=== PATIENT | female | born 1950 | race Caucasian/White ===

== ENCOUNTER 2022-06-23 07:53 | Emergency (ER) | payer MEDICARE, SELFPAY ==
[2022-06-23 08:10] VITALS: BP 195/97; PULSE 69; RESP 18; TEMP 36.3; O2SAT 96; BMI 34.7
[2022-06-23 08:14] VITALS: BP 162/90; PULSE 68; RESP 18; O2SAT 95
--- NOTE | 2022-06-23 08:22 | CRLHL7_ITS ---
For Patients: As a result of the Cures Act, medical imaging exams and procedure reports are released immediately into your electronic medical record. You may view this report before your referring provider. If you have questions, please contact your health care provider. INDICATION: Abdominal pain. COMPARISON: None. TECHNIQUE: CT abdomen and pelvis with intravenous contrast; coronal and sagittal reformats. FINDINGS: No evidence of pleural effusion. Normal size cardiac silhouette without any pericardial effusion. No focal hepatic or splenic pathology. No pancreatic pathology. Gallbladder is unremarkable. No adrenal pathology. No kidney stones or obstructive uropathy. Tiny cortical cyst left kidney. No retroperitoneal lymphadenopathy. No evidence of abdominal or pelvic ascites. No pneumoperitoneum or intestinal obstruction. Normal appendix. Status post hysterectomy. Diverticulosis sigmoid colon without any CT evidence of diverticulitis or abscess. Nonspecific nonobstructive focal dilatation of the jejunum in the left mid abdomen; rule out nonspecific enteritis. Splenic vein, superior mesenteric vein and the portal vein are unremarkable. IMPRESSION: 1. Nonspecific focal nonobstructive dilatation of the proximal small bowel in the left mid abdomen; rule out focal nonspecific enteritis. 2. Status post hysterectomy. 3. No kidney stones or obstructive uropathy. 4. Normal appendix. Please note that all CT scans at this facility use dose modulation, iterative reconstruction, and/or weight-based dosing when appropriate to reduce radiation dose to as low as reasonably achievable. Dictated by Naya Bagley MD @ 06/23/2022 10:02:59 AM (Electronically Signed)
--- NOTE | 2022-06-23 08:24 | ED_ITS ---
HPI - Abdominal Pain General Chief Complaint: Abdominal Pain Stated Complaint: Left sided abdominal pain Time Seen by Provider: 06/23/22 07:57 History of Present Illness HPI narrative: This 72-year-old female comes in reporting abdominal pain that began about a month ago. She states that it was more on the right side initially and seem to come and go for a couple weeks. Now it is more constant and diffuse throughout her abdomen. She states that the pain is relieved when laying down and worse with being upright. She denies having any nausea, vomiting, diarrhea, respiratory symptoms, decreased appetite, or dysuria symptoms. She states that she always has had some constipation and does report of a history of twinges of diverticulitis. She did see her primary physician a couple weeks ago and had complete blood count in urinalysis done which showed normal results. Related Data Home Medications Medication Instructions Recorded Confirmed acetaminophen 325 mg tablet 325 mg PO Q6H PRN 06/23/22 06/23/22 (Tylenol) alprazolam 0.5 mg tablet (Xanax) 0.5 mg PO DAILY 06/23/22 06/23/22 multivitamin (Daily Multi-Vitamin 1 tab PO DAILY 06/23/22 06/23/22 tablet) naproxen sodium 220 mg capsule 220 mg PO BID PRN 06/23/22 06/23/22 (Aleve) omeprazole 20 mg capsule,delayed 20 mg PO DAILY 06/23/22 06/23/22 release Previous Rx's Medication Instructions Recorded methylprednisolone 4 mg tablets in 4 mg PO DAILY #21 ea 06/23/22 a dose pack (Medrol (Jim)) Allergies Allergy/AdvReac Type Severity Reaction Status Date / Time atorvastatin AdvReac myalgia Verified 06/23/22 09:34 pravastatin AdvReac myalgia Verified 06/23/22 09:34 Review of Systems Status of ROS Reports: 10 or more systems reviewed and unremarkable except as noted in History and below Narrative Constitutional: No fevers, no weight gain or loss. Eyes: No discharge. No vision changes. HENT: No congestion, no sore throat, no ear pain. Cardiovascular: No chest pain, no palpitations. Respiratory: No shortness of breath, no wheezes, no cough. Gastrointestinal: No vomiting, no diarrhea. Abdominal pain as described above. Genitourinary: No dysuria, no hematuria. Musculoskeletal: Normal range of motion. Skin: No rashes, no pruritis. Neurological: No dizziness, weakness, sensory change, speech change. Endo/Heme/Allergies: No bruising or bleeding. No polydipsia. Pysch: no suicidality, no anxiety, no insomnia. All other systems reviewed and are negative. [facility] Medical History (Updated 06/23/22 @ 10:29 by Neal Landry MD) GERD (gastroesophageal reflux disease) Hyperlipidemia Surgical History (Updated 06/23/22 @ 08:45 by Danna Mcclelland RN) H/O: hysterectomy History of eyelid surgery Hx of breast reduction, elective Social History Smoking Status: Never smoker How often do you have a drink containing alcohol: 2-3 times a week AUDIT-C Alcohol total score: 3 Non-prescribed substance use: denies use Exam Narrative: Exam Narrative: Constitutional: Well-developed, well-nourished, no acute distress. HEENT: Normocephalic, atraumatic. Neck: Normal range of motion. Nontender. Supple. Heart: Regular. No murmurs. Normal rate. Intact distal pulses. Lungs: Clear to auscultation. No chest discomfort. No wheezes, rhonchi, or rales. Abdomen: Normal bowel sounds. Mild tenderness diffuse throughout the abdomen. She has some mild rebound tenderness. Genitalia: Deferred. Back: No midline tenderness. Normal range of motion. Extremities: Normal range of motion. No injury. Skin: Intact. No rash. Warm. No erythema or pallor. Neurologic: No altered sensation. No weakness. Alert and oriented. Psychiatric: No suicidality. No anxiety or depression. No insomnia. Nursing notes and vitals signs are reviewed. Const: Vital Signs, click to edit/add: Vital Signs - 24 hr 06/23/22 08:10 06/23/22 08:14 06/23/22 10:00 Temperature 97.4 F L Pulse Rate [Right Pulse Oximeter] 69 68 69 Respiratory Rate 18 18 18 Blood Pressure [Ri ght Upper Arm] 195/97 H 162/90 H 183/86 H Pulse Oximetry 96 95 96 Oxygen Delivery Me thod Room Air Room Air Room Air Course Vital Signs Vital signs: Initial Vital Signs Temperature 97.4 F L 06/23/22 08:10 Temperature Source Temporal Artery Scan 06/23/22 08:10 Pulse Rate 69 06/23/22 08:10 Respiratory Rate 18 06/23/22 08:10 Blood Pressure 195/97 H 06/23/22 08:10 Blood Pressure Mean 129 06/23/22 08:10 Blood Pressure Position Sitting 06/23/22 08:10 Pulse Oximetry 96 06/23/22 08:10 Oxygen Delivery Method 06/23/22 08:10 Vital Signs Temperature 97.4 F L 06/23/22 08:10 Pulse Rate 69 06/23/22 08:10 Respiratory Rate 18 06/23/22 08:10 Blood Pressure 195/97 H 06/23/22 08:10 Pulse Oximetry 96 06/23/22 08:10 Oxygen Delivery Method 06/23/22 08:10 Temperature 97.4 F L 06/23/22 08:10 Pulse Rate 69 06/23/22 10:00 Respiratory Rate 18 06/23/22 10:00 Blood Pressure 183/86 H 06/23/22 10:00 Pulse Oximetry 96 06/23/22 10:00 Oxygen Delivery Method 06/23/22 10:00 MDM - Abdominal Pain MDM Narrative Medical decision making narrative: This patient comes in with abdominal symptoms as described above. These have been going on for upwards of a month and her pain is somewhat reproducible with position and certain movements. A CT scan of the abdomen and pelvis was done with IV contrast and shows no acute findings except for some nonspecific enteritis in the left abdomen. Lab results returned with normal findings. It seems that her symptoms are more likely musculoskeletal or nerve mediated. In any event the lab and imaging results today are reassuring. The patient is taking omeprazole as she states that she has some upset stomach at times. I advised her to increase this medicine from 20-40 mg daily for a week or so. She also received a Medrol Dosepak. I advised her regarding signs or symptoms that indicate a need for return and re-evaluation. Lab Data Labs: Lab Results 06/23/22 06/23/22 06/23/22 Range/Units 08:30 08:30 08:30 WBC 8.55 (4.50-11.00) K/uL RBC 5.15 (4.00-5.20) m/uL Hgb 15.4 (12.0-16.0) gm/dL Hct 46.8 (33.0-51.0) % MCV 91 (80-100) fL MCH 30 (26-34) pg MCHC 33 (32-36) gm/dL RDW Coeff of Liz 13.1 (11.5-15.5) % Plt Count 352 (140-440) K/uL Neut % (Auto) 65.5 (42.0-72.0) % Lymph % (Auto) 24.1 (20-44) % [place] % (Auto) 8.5 (0.0-11.0) % Eos % (Auto) 1.2 (0.0-7.0) % Baso % (Auto) 0.5 (0.0-3.0) % Neut # (Auto) 5.60 (1.7-7.0) K/uL Lymph # (Auto) 2.06 (0.90-2.90) K/uL [place] # (Auto) 0.70 (0.00-0.90) K/UL Eos # (Auto) 0.10 (0.00-0.50) K/uL Baso # (Auto) 0.04 (0.00-0.30) K/uL Abs Immat Gran (auto) 0.02 (0.00-0.30) K/uL Sodium 140 (135-149) mmol/L Potassium 4.1 (3.6-5.1) mmol/L Chloride 102 (96-114) mmol/L Carbon Dioxide 30 (20-32) mmol/L BUN 9 (7-30) mg/dL Creatinine 0.6 (0.5-1.5) mg/dL Estimated Creat Clear 46.90 Estimated GFR 95 ml/min Glucose 131 H (60-115) mg/dL Calcium 9.3 (8.4-10.6) mg/dL Total Bilirubin 0.5 (0.1-1.5) mg/dL Direct Bilirubin 0.2 (0.0-0.5) mg/dL AST 41 H (12-35) U/L ALT 31 (4-35) U/L Alkaline Phosphatase 79 (40-150) U/L Total Protein 8.2 (6.0-8.3) g/dL Albumin 4.6 (3.3-5.0) g/dL Lipase 79 (23-300) U/L Imaging Data CT scan - abdomen: Radiologist's impression: 1. Nonspecific focal nonobstructive dilatation of the proximal small bowel in the left mid abdomen; rule out focal nonspecific enteritis. 2. Status post hysterectomy. 3. No kidney stones or obstructive uropathy. 4. Normal appendix. Discharge Plan Discharge Clinical Impression: Abdominal pain Condition: Stable Instructions: Abdominal Pain (ED) Additional Instructions: Take medications as needed and indicated. Follow up with MD or return if worsening symptoms occur. Prescriptions: New methylprednisolone [Medrol (Jim)] 4 mg tablets,dose pack 4 mg PO DAILY Qty: 21 0RF No Action naproxen sodium [Aleve] 220 mg capsule 220 mg PO BID PRN acetaminophen [Tylenol] 325 mg tablet 325 mg PO Q6H PRN alprazolam [Xanax] 0.5 mg tablet 0.5 mg PO DAILY multivitamin [Daily Multi-Vitamin] Tablet 1 tab PO DAILY omeprazole 20 mg capsule,delayed release(DR/EC) 20 mg PO DAILY Follow Up/Referrals: Jaimee Swanson, [employer], [employer] [Primary Care Provider] - Stand Alone Forms: [facility] Info Instructions
[2022-06-23 09:14] LABS: Albumin* 4.6 g/dL (3.3-5.0); Chloride* 102 mmol/L (96-114); Sodium* 140 mmol/L (135-149)
[2022-06-23 09:15] LABS: Potassium* 4.1 mmol/L (3.6-5.1)
[2022-06-23 09:17] LABS: Alanine Aminotransferase* 31 U/L (4-35); Alkaline Phosphatase* 79 U/L (40-150); Aspartate Amino Transferase* 41 U/L (12-35); Bilirubin Direct* 0.2 mg/dL (0.0-0.5); Bilirubin Total* 0.5 mg/dL (0.1-1.5); Blood Urea Nitrogen* 9 mg/dL (7-30); Calcium* 9.3 mg/dL (8.4-10.6); Carbon Dioxide* 30 mmol/L (20-32); Creatinine* 0.6 mg/dL (0.5-1.5); Estimated Glomerular Filt Rate 95 ml/min; Glucose* 131 mg/dL (60-115); Total Protein* 8.2 g/dL (6.0-8.3)
[2022-06-23 09:18] LABS: Lipase* 79 U/L (23-300)
[2022-06-23 09:29] LABS: Basophils Absolute Auto 0.04 K/uL (0.00-0.30); Basophils Percent Auto 0.5 % (0.0-3.0); Eosinophils Percent Auto 1.2 % (0.0-7.0); Hematocrit 46.8 % (33.0-51.0); Hemoglobin* 15.4 gm/dL (12.0-16.0); Immature Granulocytes Abs Auto 0.02 K/uL (0.00-0.30); Lymphocytes Absolute Auto 2.06 K/uL (0.90-2.90); Lymphocytes Percent Auto 24.1 % (20-44); Mean Corpuscular HGB Conc 33 gm/dL (32-36); Mean Corpuscular Hemoglobin 30 pg (26-34); Mean Corpuscular Volume 91 fL (80-100); Monocytes Percent Auto 8.5 % (0.0-11.0); Neutrophils Percent Auto 65.5 % (42.0-72.0); Platelet Count* 352 K/uL (140-440); RDW Coefficient of Variation % 13.1 % (11.5-15.5); Red Blood Count 5.15 m/uL (4.00-5.20); White Blood Count* 8.55 K/uL (4.50-11.00)
[2022-06-23 09:32] LABS: Slide Review Reflex No
[2022-06-23 10:00] VITALS: BP 183/86; PULSE 69; RESP 18; O2SAT 96
== END 2022-06-23 10:47 | disposition home or self-care (01) ==
PROVIDERS: Emergency Provider Emergency Medicine Emergency Medical Services; PCP Nurse Practitioner Family
DX: R10.84 Generalized abdominal pain (principal)
CPT/HCPCS: 36415; 74177; 80048; 80076; 83690; 85025; 99284; Q9967

== ENCOUNTER 2023-08-07 16:59 | Emergency (ER) | payer MEDICARE, SELFPAY ==
[2023-08-07] VITALS (26 sets, daily range): BP systolic 90–182; BP diastolic 56–96; PULSE 44–72; RESP 20; TEMP 35.7; O2SAT 93–98; BMI 33.9
--- NOTE | 2023-08-07 17:16 | CRLHL7_ITS ---
For Patients: As a result of the Cures Act, medical imaging exams and procedure reports are released immediately into your electronic medical record. You may view this report before your referring provider. If you have questions, please contact your health care provider. INDICATION: Cough, chest pain. TECHNIQUE: Chest radiograph 2 views COMPARISON: None FINDINGS: Indeterminate nodules in the right hemithorax, 2 of which appear to project in the anterior right chest wall on lateral view. Superior nodule appears to project in the right upper lung zone. Left hemithorax clear. No airspace consolidation or pleural effusions. Heart size and mediastinal contours within normal limits. Bones and soft tissues unremarkable. No thoracic spine compression fracture. IMPRESSION: 1. Indeterminate nodule suspected in the right upper lobe, estimated size 2.3 cm. Two additional nodules may project in the anterior right chest wall. Recommend chest CT with IV contrast for further characterization. No focal pneumonia. Dictated by Tc Brennan MD @ 08/07/2023 6:13:23 PM Dictated by: Tc Brennan MD @ 08/07/2023 18:13:28 (Electronically Signed)
[2023-08-07] MEDS: ASPIRIN 81 MG TAB.CHEW 324 MG PO (17:18)
[2023-08-07] MEDS: NITROGLYCERIN 0.4 MG TAB.SUBL SUBLINGUAL (17:19)
--- NOTE | 2023-08-07 17:31 | ED.CHESTPAIN ---
HPI - Chest Pain General Date Seen: 08/07/23 Chief Complaint: Chest Pain Stated Complaint: Shoulder, jaw, chest aches Time Seen by Provider: 08/07/23 17:01 Source: patient Mode of arrival: ambulatory Limitations: no limitations History of Present Illness HPI narrative: Patient is a 73-year-old female with history of hypertension, hyperlipidemia presented emergency department for chest pain. She states the chest pain started yesterday and has been intermittent in nature. States now is the worst it has been. She states it feels like her previous gastric reflux blood worse. Describes as a burning sensation. Symptoms radiate from her chest to her bilateral shoulders and right jaw. Denies symptoms like this before. She has no family history of heart disease and has no history of smoking. Denies fevers, chills, lightheadedness, dizziness, abdominal pain, diarrhea, constipation, fevers, chills, headache, vision changes, weakness, numbness. She is not having any shortness of breath and symptoms are not worsened on deep breaths. She has notice symptoms seem to get better when she lays flat and are mildly worse when she is up and moving around. Related Data Home Medications Medication Instructions Recorded Confirmed acetaminophen 325 mg tablet 325 mg PO Q6H PRN 06/23/22 06/23/22 (Tylenol) multivitamin (Daily Multi-Vitamin 1 tab PO DAILY 06/23/22 06/23/22 tablet) naproxen sodium 220 mg capsule 220 mg PO BID PRN 06/23/22 06/23/22 (Aleve) omeprazole 20 mg capsule,delayed 20 mg PO DAILY 06/23/22 08/07/23 release lisinopril 20 mg tablet 20 mg PO DAILY 08/07/23 08/07/23 omega 7-pdd-aau-fish oil 1,000 mg 1 cap PO DAILY 08/07/23 08/07/23 (120 mg-180 mg) capsule (Fish Oil) Allergies Allergy/AdvReac Type Severity Reaction Status Date / Time atorvastatin AdvReac myalgia Verified 08/07/23 17:10 pravastatin AdvReac myalgia Verified 08/07/23 17:10 Review of Systems Status of ROS Reports: 10 or more systems reviewed and unremarkable except as noted in History and below PFSH PFS Medical History (Updated 08/07/23 @ 21:17 by Pawan Ma, DO) Hyperlipidemia ?E78.5 - Hyperlipidemia, unspecified (ICD-10) GERD (gastroesophageal reflux disease) ?K21.9 - Gastro-esophageal reflux disease without esophagitis (ICD-10) Surgical History (Updated 06/23/22 @ 08:45 by Danna Mcclelland RN) History of eyelid surgery ?Z98.890 - Other specified postprocedural states (ICD-10) Hx of breast reduction, elective ?Z98.890 - Other specified postprocedural states (ICD-10) H/O: hysterectomy ?Z90.710 - Acquired absence of both cervix and uterus (ICD-10) Social History Smoking Status: Never smoker How often do you have a drink containing alcohol: 2-3 times a week How many standard drinks containing alcohol do you have on a typical day: 1 or 2 AUDIT-C Alcohol total score: 3 Non-prescribed substance use: denies use Exam Narrative Exam Narrative: Const: Well-nourished, Well-developed, in mild distress Eyes: PERRL, no conjunctival injection, and symmetrical lids HENT: Atraumatic external nose and ears. Moist mucous membranes. Neck: Symmetric, trachea midline, No thyromegaly. CVS: RRR, No murmurs or gallops. Peripheral pulses 2+ and equal in all extremities RESP: Unlabored respiratory effort. Clear to auscultation bilaterally. GI: Nontender/Nondistended, No rebound or guarding. MSK:Extremities w/o deformity, Normal Active ROM Skin: Warm, Dry. No rashes or lesions. Neuro: Normal Muscle tone, No focal neurological deficits. Psych: Awake, Alert, & Oriented x3. Appropriate mood and affect. Const Vital Signs, click to edit/add: Vital Signs - 24 hr 08/07/23 17:04 08/07/23 17:11 08/07/23 17:37 Temperature 96.3 F L Pulse Rate Pulse Rate [Right Pulse Oximeter] 72 Respiratory Rate 20 Blood Pressure [Left Upper Arm] 182/82 H 154/76 H 155/70 H Pulse Oximetry 98 Oxygen Delivery Method Room Air 08/07/23 18:00 08/07/23 18:30 08/07/23 18:36 Temperature Pulse Rate 49 L Pulse Rate [Right Pulse Oximeter] Respiratory Rate Blood Pressure [Left Upper Arm] 142/68 H 144/65 H Pulse Oximetry 96 Oxygen Delivery Method Room Air Course Vital Signs Vital signs: Initial Vital Signs Temperature 96.3 F L 08/07/23 17:04 Temperature Source Temporal Artery Scan 08/07/23 17:04 Pulse Rate 72 08/07/23 17:04 Pulse Rhythm Regular 08/07/23 17:04 Respiratory Rate 20 08/07/23 17:04 Blood Pressure 182/82 H 08/07/23 17:04 Blood Pressure Mean 115 H 08/07/23 17:04 Blood Pressure Position Semi-Fowlers 08/07/23 17:04 Pulse Oximetry 98 08/07/23 17:04 Oxygen Delivery Method Room Air 08/07/23 17:04 Vital Signs Temperature 96.3 F L 08/07/23 17:04 Pulse Rate 72 08/07/23 17:04 Respiratory Rate 20 08/07/23 17:04 Blood Pressure 182/82 H 08/07/23 17:04 Pulse Oximetry 98 08/07/23 17:04 Oxygen Delivery Method Room Air 08/07/23 17:04 Temperature 96.3 F L 08/07/23 17:04 Pulse Rate 49 L 08/07/23 18:36 Respiratory Rate 20 08/07/23 17:04 Blood Pressure 144/65 H 08/07/23 18:30 Pulse Oximetry 96 08/07/23 18:36 Oxygen Delivery Method Room Air 08/07/23 18:36 MDM - Chest Pain MDM Narrative Medical decision making narrative: Patient is a 73-year-old female presenting to emergency department for chest pain. Symptoms have been going on since yesterday. She describes as a burning sensation similar to previous GERD but this time it radiates to her shoulders and her neck. The radiation has since resolved and is back to burning sensation in her chest. She does note the symptoms are better when she lays down flat and mildly worse when she gets up and walks around. We will do an ACS workup on her. We have unlikely to be pulmonary embolism at this time due to no shortness of breath or dyspnea and no signs of a DVT. Patient's lab work returned showing no concerning abnormalities. Troponin was with initially within normal limits. Urinalysis shows no signs of UTI. COVID a and flu showed no concerning abnormalities. Chest x-ray shows no concerning abnormalities. At this time with her stable vital signs and dissection pneumothorax unlikely considering the imaging. There are nodules but she should follow up outpatient for. No signs of pneumonia. She did get aspirin and nitro when she 1st came in. Symptoms have resolved but she states that resolved quite a while after she got the nitro and underlying bleed if it is related to that at this time. His other is doing well. Her repeat point of care troponin was 0.2 which is notably elevated compared to previously. She does state she still feels a slight discomfort in her chest. We will consult [facility] for possible transfer. Heparin was started. Patient was given another dose of nitro and her symptoms improved again. I spoke to Dr. Klein of [facility] and he accepts her for transfer. Recommends nitro drip if symptoms return again. Patient is agreeable to this plan. Lab Data Labs: Lab Results 08/07/23 08/07/23 08/07/23 Range/Units 17:16 17:30 17:53 WBC 8.05 (4.50-11.00) K/uL RBC 4.45 (4.00-5.20) m/uL Hgb 13.5 (12.0-16.0) gm/dL Hct 40.6 (33.0-51.0) % MCV 91 (80-100) fL MCH 30 (26-34) pg MCHC 33 (32-36) gm/dL RDW Coeff of Liz 13.0 (11.5-15.5) % Plt Count 279 (140-440) K/uL Neut % (Auto) 52.8 (42.0-72.0) % Lymph % (Auto) 36.3 (20-44) % [place] % (Auto) 8.7 (0.0-11.0) % Eos % (Auto) 1.6 (0.0-7.0) % Baso % (Auto) 0.4 (0.0-3.0) % Neut # (Auto) 4.25 (1.7-7.0) K/uL Lymph # (Auto) 2.92 H (0.90-2.90) K/uL [place] # (Auto) 0.70 (0.00-0.90) K/UL Eos # (Auto) 0.13 (0.00-0.50) K/uL Baso # (Auto) 0.03 (0.00-0.30) K/uL Abs Immat Gran (auto) 0.02 (0.00-0.30) K/uL Imm/Tot Granulo (auto) 0.2 % Sodium 139 (135-149) mmol/L Potassium 3.7 (3.6-5.1) mmol/L Chloride 104 (96-114) mmol/L Carbon Dioxide 26 (20-32) mmol/L Anion Gap 9 (7-15) mEq/L BUN 11 (7-30) mg/dL Creatinine 0.6 (0.5-1.5) mg/dL Estimated Creat Clear 46.20 Estimated GFR 94 ml/min Glucose 124 H (60-115) mg/dL Calcium 8.5 (8.4-10.6) mg/dL Magnesium 1.9 (1.5-2.6) mg/dL Troponin I < 0.01 L (0.01-0.04) ng/mL Urine Color (Yellow) Urine Appearance (Clear) Urine pH (5.0-8.5) Ur Specific [place] (1.000-1.030) Urine Protein (Negative) Urine Glucose (UA) (Negative) Urine Ketones (Negative) Urine Blood (Negative) Urine Nitrite (Negative) Urine Bilirubin (Negative) Urine Urobilinogen (0.2-1.0) Ur Leukocyte Esterase (Negative) Urine RBC (0-2) Urine WBC (0-5) Ur Squamous Epith Cells (None-Few) Urine Bacteria (None) Urine Mucus (None) SARS-CoV-2 (PCR) Negative SARS-CoV-2 (Negative) Influenza Type A (PCR) Negative PCR FLU A (Negative) Influenza Type B (PCR) Negative PCR FLU B (Negative) POC Troponin I 0.00 L (0.01-0.04) ng/ml 08/07/23 08/07/23 Range/Units 19:25 20:30 WBC (4.50-11.00) K/uL RBC (4.00-5.20) m/uL Hgb (12.0-16.0) gm/dL Hct (33.0-51.0) % MCV (80-100) fL MCH (26-34) pg MCHC (32-36) gm/dL RDW Coeff of Liz (11.5-15.5) % Plt Count (140-440) K/uL Neut % (Auto) (42.0-72.0) % Lymph % (Auto) (20-44) % [place] % (Auto) (0.0-11.0) % Eos % (Auto) (0.0-7.0) % Baso % (Auto) (0.0-3.0) % Neut # (Auto) (1.7-7.0) K/uL Lymph # (Auto) (0.90-2.90) K/uL [place] # (Auto) (0.00-0.90) K/UL Eos # (Auto) (0.00-0.50) K/uL Baso # (Auto) (0.00-0.30) K/uL Abs Immat Gran (auto) (0.00-0.30) K/uL Imm/Tot Granulo (auto) % Sodium (135-149) mmol/L Potassium (3.6-5.1) mmol/L Chloride (96-114) mmol/L Carbon Dioxide (20-32) mmol/L Anion Gap (7-15) mEq/L BUN (7-30) mg/dL Creatinine (0.5-1.5) mg/dL Estimated Creat Clear Estimated GFR ml/min Glucose (60-115) mg/dL Calcium (8.4-10.6) mg/dL Magnesium (1.5-2.6) mg/dL Troponin I (0.01-0.04) ng/mL Urine Color Dark yellow (Yellow) Urine Appearance Clear (Clear) Urine pH 6.0 (5.0-8.5) Ur Specific [place] >= 1.030 (1.000-1.030) Urine Protein 1+ A (Negative) Urine Glucose (UA) Negative (Negative) Urine Ketones Negative (Negative) Urine Blood Negative (Negative) Urine Nitrite Negative (Negative) Urine Bilirubin Negative (Negative) Urine Urobilinogen 0.2 (0.2-1.0) Ur Leukocyte Esterase Negative (Negative) Urine RBC 0-2 (0-2) Urine WBC 0-2 (0-5) Ur Squamous Epith Cells Few (None-Few) Urine Bacteria Few A (None) Urine Mucus Few A (None) SARS-CoV-2 (PCR) (Negative) Influenza Type A (PCR) (Negative) Influenza Type B (PCR) (Negative) POC Troponin I 0.20 H (0.01-0.04) ng/ml ECG Data Attestation: I personally reviewed and interpreted this ECG as follows: Prior ECG tracings: not available for review Interpretation: Normal sinus rhythm with a rate of 78 beats per minute, normal intervals, normal axis.There are multiple PVCs. She does appear to be inverted T-waves in V2 and V3. She is a female so this could be normal but they could also be pathological we do not have previous EKGs to compare. There also appears to be slight depressions in the ST segments of V3 Critical Care Time Critical Care Time Critical Care Time: Yes Attestation: The patient required my highest level preparedness to intervene emergently and I personally spent this critical care time directly and personally managing the patient. This critical care time included: Obtaining a history; Examining the patient; Pulse oximetry; Ordering and reviewing of studies; Arranging urgent treatment with development of a management plan; Evaluation of patients response to treatment; Frequent reassessment discussions with other providers. This critical care time was performed to assess and manage the high probability of imminent life-threatening deterioration that could result in multiorgan failure. It was exclusive of separate billable procedures and treating other patients and teaching time. Total Critical Care Time in Minutes: 37 Discharge Plan Discharge Clinical Impression: Acute non-ST elevation myocardial infarction (NSTEMI) Patient Disposition: Xfer [facility] Discharge Location: [facility] Condition: Improved Prescriptions: No Action naproxen sodium [Aleve] 220 mg capsule 220 mg PO BID PRN acetaminophen [Tylenol] 325 mg tablet 325 mg PO Q6H PRN multivitamin [Daily Multi-Vitamin] Tablet 1 tab PO DAILY omeprazole 20 mg capsule,delayed release(DR/EC) 20 mg PO DAILY lisinopril 20 mg tablet 20 mg PO DAILY omega 2-zem-abb-fish oil [Fish Oil] 1,000 mg (120 mg-180 mg) capsule 1 cap PO DAILY Stand Alone Forms: [employer] Info Instructions
[2023-08-07 17:41] LABS: Basophils Absolute Auto 0.03 K/uL (0.00-0.30); Basophils Percent Auto 0.4 % (0.0-3.0); Eosinophils Absolute Auto 0.13 K/uL (0.00-0.50); Eosinophils Percent Auto 1.6 % (0.0-7.0); Hematocrit 40.6 % (33.0-51.0); Hemoglobin* 13.5 gm/dL (12.0-16.0); Immature Granulocytes Abs Auto 0.02 K/uL (0.00-0.30); Immature Granulocytes Pct Auto 0.2 %; Lymphocytes Absolute Auto 2.92 K/uL (0.90-2.90); Lymphocytes Percent Auto 36.3 % (20-44); Mean Corpuscular HGB Conc 33 gm/dL (32-36); Mean Corpuscular Hemoglobin 30 pg (26-34); Mean Corpuscular Volume 91 fL (80-100); Monocytes Percent Auto 8.7 % (0.0-11.0); Neutrophils Absolute Auto 4.25 K/uL (1.7-7.0); Neutrophils Percent Auto 52.8 % (42.0-72.0); Platelet Count* 279 K/uL (140-440); Red Blood Count 4.45 m/uL (4.00-5.20); White Blood Count* 8.05 K/uL (4.50-11.00)
[2023-08-07 17:43] LABS: Slide Review Reflex No
--- NOTE | 2023-08-07 17:50 | ED.NURSE ---
Pt reports improved chest pain after receiving the nitro.
[2023-08-07 17:56] LABS: Chloride* 104 mmol/L (96-114); Sodium* 139 mmol/L (135-149)
[2023-08-07 17:57] LABS: Potassium* 3.7 mmol/L (3.6-5.1)
[2023-08-07 17:59] LABS: Creatinine* 0.6 mg/dL (0.5-1.5); Estimated Glomerular Filt Rate 94 ml/min
[2023-08-07 18:00] LABS: Anion Gap 9 mEq/L (7-15); Blood Urea Nitrogen* 11 mg/dL (7-30); Calcium* 8.5 mg/dL (8.4-10.6); Carbon Dioxide* 26 mmol/L (20-32); Glucose* 124 mg/dL (60-115); Magnesium* 1.9 mg/dL (1.5-2.6)
[2023-08-07 18:36] LABS: PCR FLU A Negative PCR FLU A (Negative); PCR FLU B Negative PCR FLU B (Negative); SARS PCR* Negative SARS-CoV-2 (Negative)
[2023-08-07 18:38] LABS: Troponin I* < 0.01 ng/mL (0.01-0.04)
--- NOTE | 2023-08-07 18:58 | ED.NURSE ---
pt report given off to oncoming RN.
[2023-08-07 19:29] LABS: Appearance Urine Clear (Clear); Bilirubin Urine Negative (Negative); Blood Urine Negative (Negative); Color Urine Dark yellow (Yellow); Glucose Urine Negative (Negative); Ketones Urine Negative (Negative); Leukocyte Esterase Urine Negative (Negative); Nitrite Urine Negative (Negative); Protein Urine 1+ (Negative); Specific Gravity Urine >= 1.030 (1.000-1.030); Urobilinogen Urine 0.2 (0.2-1.0)
[2023-08-07 19:41] LABS: Bacteria Urine Few; RBC Urine 0-2 (0-2); Squamous Epithelial Cell Urine Few (None-Few); WBC Urine 0-2 (0-5)
[2023-08-07 19:42] LABS: Mucus Urine Few
[2023-08-07] MEDS: HEPARIN 5,000 UNIT/0.5 ML INJ 4000 UNIT IVP (21:11)
[2023-08-07] MEDS: HEPARIN 25,000 UNIT/500 ML BAG 20 UNIT IV (21:12)
[2023-08-07 21:23] LABS: Troponin I* 0.22 ng/mL (0.01-0.04)
[2023-08-07 21:26] LABS: INR 0.85 (0.91-1.10); Prothrombin Time 12.2 Seconds
[2023-08-07 21:27] LABS: Partial Thromboplastin Time* 27 Seconds (23-33)
--- NOTE | 2023-08-07 22:01 | ED.NURSE ---
Report given to [facility] nurse and report given to medics. Pt transporting to [facility] at this time.
== END 2023-08-07 22:07 | disposition short-term general hospital (02) ==
PROVIDERS: Emergency Provider Student in an Organized Health Care Education/Training Program; PCP Nurse Practitioner Family
DX: I21.4 Non-ST elevation (NSTEMI) myocardial infarction (principal); N39.0 Urinary tract infection, site not specified
CPT/HCPCS: 36415; 71046; 80048; 81001; 83735; 84484; 85025; 85610; 85730; 87086; 87631; 93005; 99284; 99291; A9270; J1644

== ENCOUNTER 2023-08-07 22:02 | Outpatient (CLI) | payer MEDICARE, SELFPAY | END 2023-08-07 22:03 | disposition home or self-care (01) | LOC: AMB 08-10 10:45 | PROVIDERS: PCP Nurse Practitioner Family; Visit Provider Emergency Medicine | DX: I21.4 Non-ST elevation (NSTEMI) myocardial infarction (principal) | CPT/HCPCS: A0425; A0434 ==